=== PATIENT | female | born 1960 | race Hispanic/Latino ===

== ENCOUNTER 2023-05-08 18:10 | Inpatient (IN) | payer SELFPAY ==
[2023-05-08 19:12] LABS: SARS-CoV-2 Antigen Rapid Res Negative (Negative)
[2023-05-08 19:13] LABS: Absolute Lymphocytes (CBC) 0.4 K/uL (0.7-4.9); Hematocrit 41.3 % (36.0-45.0); Lymphocytes % 2.1 % (15.3-44.8); MPV 8.8 fL (7.6-11.3); Platelets 262 thou/uL (152-406); RBC Red Blood Cell Count 4.64 M/uL (3.86-4.86)
[2023-05-08 19:14] LABS: Protime INR 1.06
[2023-05-08] MEDS ORDERED: NA CHLORIDE 0.9% 2,000 ML ONE (19:22)
[2023-05-08] MEDS ORDERED: NA CHLORIDE 0.9% 50 ML ONE (19:22)
[2023-05-08] MEDS ORDERED: CEFTRIAXONE 1000 MG/VIAL ONE (19:22)
--- NOTE | 2023-05-08 20:15 | RAD REPORT ---
EXAM DESCRIPTION: RAD - Chest Single View - 05/08/2023 7:49 pm CLINICAL HISTORY: COUGH Chest pain. COMPARISON: No comparisons FINDINGS: Portable technique limits examination quality. The lungs are grossly clear. The heart is normal in size. No displaced fractures. IMPRESSION: No acute intrathoracic process suspected.
[2023-05-08 20:20] LABS: Albumin 3.7 g/dL (3.4-5.0); Bilirubin Direct 0.2 mg/dL (0-0.2); Bilirubin Indirect, Calculated 0.2 mg/dL (0.2-0.8); Bilirubin Total 0.4 mg/dL (0.2-1.0); Potassium 3.6 mEq/L (3.5-5.1); Protein, Total 6.9 g/dL (6.4-8.2)
--- NOTE | 2023-05-08 20:48 | EDPHYS ---
Physician Documentation [facility] Name: Margo Costello Age: 62 yrs Sex: Female : 1960 Arrival Date: 05/08/2023 Time: 18:10 Bed 19 Private MD: ED Physician Kirby Edwards HPI: 05/08 20:26 This 62 yrs old Female presents to ER via Ambulatory with complaints of Low bismark bp, high heart rate. 20:26 The patient complains of pain to the top of head, forehead, left frontal area and left bismark side of the back of head. The patient describes the headache as aching. Onset: The symptoms/episode began/occurred today. The patient presents with a history of heart racing. Context: The symptoms occur with light activity. Onset: The symptoms/episode began/occurred at 13:00. Duration: The patient or guardian reports multiple episodes, that are intermittent. Modifying factors: The symptoms are aggravated by nothing. The symptoms are alleviated by nothing. The patient presents to the emergency department with nausea, that is moderate, vomiting, 2 times since the onset of symptoms. The symptoms are aggravated by nothing. The symptoms are alleviated by nothing. GOT WEAK , CHILLED, VOMITING TWICE , FAST HR, LOW BP. Historical: - Allergies: 18:25 No Known Allergies; nj1 - PMHx: 18:25 Hypertensive disorder; Diabetes mellitus; nj1 - PSHx: 18:25 Cholecystectomy; nj1 - Immunization history:: Client reports receiving the 2nd dose of the Covid vaccine. - Social history:: Smoking status: Patient denies any tobacco usage or history of. ROS: 20:29 Constitutional: Negative for fever, chills, and weight loss, Eyes: Negative for injury, bismark pain, redness, and discharge, ENT: Negative for injury, pain, and discharge, Neck: Negative for injury, pain, and swelling, Respiratory: Negative for shortness of breath, cough, wheezing, and pleuritic chest pain, Back: Negative for injury and pain, : Negative for injury, bleeding, discharge, and swelling, MS/Extremity: Negative for injury and deformity, Skin: Negative for injury, rash, and discoloration, Neuro: Negative for headache, weakness, numbness, tingling, and seizure, Psych: Negative for depression, anxiety, suicide ideation, homicidal ideation, and hallucinations, Allergy/Immunology: Negative for hives, rash, and allergies, Endocrine: Negative for neck swelling, polydipsia, polyuria, polyphagia, and marked weight changes, Hematologic/Lymphatic: Negative for swollen nodes, abnormal bleeding, and unusual bruising. 20:29 Cardiovascular: Positive for palpitations. 20:29 Abdomen/GI: Positive for nausea and vomiting. Exam: 20:29 Constitutional: This is a well developed, well nourished patient who is awake, alert, bismark and in no acute distress. Head/Face: Normocephalic, atraumatic. Eyes: Pupils equal round and reactive to light, extra-ocular motions intact. Lids and lashes normal. Conjunctiva and sclera are non-icteric and not injected. Cornea within normal limits. Periorbital areas with no swelling, redness, or edema. ENT: Nares patent. No nasal discharge, no septal abnormalities noted. Tympanic membranes are normal and external auditory canals are clear. Oropharynx with no redness, swelling, or masses, exudates, or evidence of obstruction, uvula midline. Mucous membranes moist. Neck: Trachea midline, no thyromegaly or masses palpated, and no cervical lymphadenopathy. Supple, full range of motion without nuchal rigidity, or vertebral point tenderness. No Meningismus. Chest/axilla: Normal chest wall appearance and motion. Nontender with no deformity. No lesions are appreciated. Respiratory: Lungs have equal breath sounds bilaterally, clear to auscultation and percussion. No rales, rhonchi or wheezes noted. No increased work of breathing, no retractions or nasal flaring. Abdomen/GI: Soft, non-tender, with normal bowel sounds. No distension or tympany. No guarding or rebound. No evidence of tenderness throughout. Back: No spinal tenderness. No costovertebral tenderness. Full range of motion. Female : Normal external genitalia. Skin: Warm, dry with normal turgor. Normal color with no rashes, no lesions, and no evidence of cellulitis. MS/ Extremity: Pulses equal, no cyanosis. Neurovascular intact. Full, normal range of motion. Neuro: Awake and alert, GCS 15, oriented to person, place, time, and situation. Cranial nerves II-XII grossly intact. Motor strength 5/5 in all extremities. Sensory grossly intact. Cerebellar exam normal. Normal gait. Psych: Awake, alert, with orientation to person, place and time. Behavior, mood, and affect are within normal limits. 20:29 Neck: External neck: is normal, no acute changes, ROM/movement: is normal, no acute changes, limited range of motion, is not appreciated, Meningeal signs: are not present, Kernig's sign is negative, Brudzinski's sign is negative, nuchal rigidity, is not appreciated, Lymph nodes: no appreciated lymphadenopathy. 20:29 Cardiovascular: Rate: tachycardic, actual rate is 139 bpm, Rhythm: regular, Pulses: Pulses are 4+ in bilateral radial, brachial, femoral, popliteal, posterior tibial and and dorsalis pedis arteries.. Heart sounds: normal, normal S1and S2, no S3 or S4, no murmur, no rub, no gallop, Edema: is not appreciated, JVD: is not appreciated. 20:29 ECG was reviewed by the Attending Physician. 20:29 Musculoskeletal/extremity: DVT Exam: No signs of deep vein thrombosis. no pain, no swelling, no tenderness, negative Homans' sign noted on exam, no appreciated bluish discoloration, no erythema, no increased warmth. Vital Signs: 18:19 BP 103 / 65; Pulse 139; Resp 18; Temp 98.2; Pulse Ox 98% ; Weight 65.32 kg; Height 5 nj1 ft. 4 in. ; 18:45 BP 104 / 60; Pulse 126; Resp 20; Pulse Ox 97% on R/A; cm10 19:35 BP 102 / 59; Pulse 118; Resp 18; Pulse Ox 100% on R/A; cm10 20:30 BP 96 / 50; Pulse 115; Resp 22; Pulse Ox 100% on R/A; cm10 21:41 Pulse 122; Temp 98.5(O); cm10 22:00 BP 86 / 69; Pulse 125; Resp 19; Pulse Ox 98% on R/A; cm10 22:10 BP 91 / 44; Pulse 127; Resp 24; Pulse Ox 98% on R/A; cm10 22:30 BP 96 / 47; Pulse 129; Resp 21; Pulse Ox 97% on R/A; cm10 23:00 BP 85 / 53; Pulse 121; Resp 19; Pulse Ox 97% on R/A; cm10 23:07 BP 90 / 48; Pulse 118; Resp 21; Pulse Ox 96% on R/A; cm10 23:30 BP 91 / 49; Pulse 108; Resp 16; Pulse Ox 95% on R/A; cm10 05/09 00:10 BP 105 / 62; Pulse 114; Resp 18; Pulse Ox 96% on R/A; cm10 05/08 18:19 Body Mass Index 24.72 (65.32 kg, 162.56 cm) nj1 Chelita Coma Score: 05/08 20:31 Eye Response: spontaneous(4). Motor Response: obeys commands(6). Verbal Response: bismark oriented(5). Total: 15. MDM: 18:34 Patient medically screened. bismark 20:31 Differential diagnosis: cluster headache, arrythmia, dehydration, stress disorder, bismark Nonspecific abd pain, gastritis, pancreatitis, diverticulitis, viral gastroenteritis, gastroenteritis, hyponatremia, intracerebral hemorrhage, migraine, neoplasm, sinusitis, subarachnoid bleed, subdural hematoma, temporal arteritis, tension headache, trigeminal neuralgia, vasomotor headache. Differential Diagnosis altered mental status, sepsis, flu. Data reviewed: vital signs, nurses notes, lab test result(s), EKG, radiologic studies, CT scan, plain films. Consideration of Admission/Observation Patient was admitted/placed on observation. Escalation of care including admission/observation considered. I considered the following discharge prescriptions or medication management in the emergency department Medications were administered in the Emergency Department. See MAR. Test considered but Not performed: CT: NO CT ABD/PELVIS. Historians other than the Patient: Family Member: DAUGHTER , INFORMED. Care significantly affected by the following chronic conditions: Diabetes, Hypertension, Obesity. Counseling: I had a detailed discussion with the patient and/or guardian regarding the historical points, exam findings, and any diagnostic results supporting the discharge/admit diagnosis, lab results, radiology results, the need for further work-up and treatment in the hospital. 05/08 18:36 Order name: Basic Metabolic Panel; Complete Time: 20:41 [facility] 05/08 18:36 Order name: CBC with Diff; Complete Time: 20:18 [facility] 05/08 18:36 Order name: LFT's; Complete Time: 20:41 [facility] 05/08 18:36 Order name: Magnesium; Complete Time: 20:41 [facility] 05/08 18:36 Order name: NT PRO-BNP; Complete Time: 20:41 [facility] 05/08 18:36 Order name: PT-INR; Complete Time: 20:18 [facility] 05/08 18:36 Order name: Troponin HS; Complete Time: 20:41 [facility] 05/08 18:36 Order name: Lipase; Complete Time: 20:41 [facility] 05/08 18:36 Order name: Urinalysis w/ reflexes; Complete Time: 23:41 [facility] 05/08 18:36 Order name: Blood Culture Adult (2) [facility] 05/08 18:36 Order name: Lactate w/ 2H reflex if indic.; Complete Time: 20:18 [facility] 05/08 18:36 Order name: Flu; Complete Time: 20:18 [facility] 05/08 18:36 Order name: SARS RAPID; Complete Time: 20:18 [facility] 05/08 21:46 Order name: Glucose, Ancillary Testing; Complete Time: 23:41 EDMS 05/08 22:04 Order name: Urine Culture EDMS 05/08 22:42 Order name: Comprehensive Metabolic Panel EDMS 05/08 22:42 Order name: Comprehensive Metabolic Panel EDMS 05/08 22:42 Order name: Lactate w/ 2H reflex if indic. EDMS 05/08 22:42 Order name: CBC with Automated Diff EDMS 05/08 22:42 Order name: CBC with Automated Diff EDMS 05/08 22:42 Order name: CBC with Automated Diff EDMS 05/08 22:42 Order name: Comprehensive Metabolic Panel EDMS 05/08 22:42 Order name: Comprehensive Metabolic Panel EDMS 05/08 22:42 Order name: Magnesium EDMS 05/08 22:42 Order name: Urinalysis w/ reflexes EDMS 05/08 22:42 Order name: CBC with Automated Diff EDMS 05/08 22:43 Order name: Magnesium EDMS 05/08 22:43 Order name: Magnesium EDMS 05/08 22:43 Order name: Magnesium EDMS 05/08 23:38 Order name: Lactate Sepsis 2 HR Follow-up; Complete Time: 23:41 EDMS 05/09 00:13 Order name: Glucose, Ancillary Testing EDMS 05/08 18:36 Order name: XRAY Chest (1 view); Complete Time: 20:18 [facility] 05/08 20:25 Order name: CT Head Brain wo Cont; Complete Time: 21:40 [facility] 05/08 18:36 Order name: EKG; Complete Time: 18:37 [facility] 05/08 22:38 Order name: CONS Physician Consult [facility] 05/08 22:42 Order name: 60g Consistent Carbohydrate (ADA 1800/2000) [facility] 05/08 18:36 Order name: Cardiac monitoring; Complete Time: 18:56 [facility] 05/08 18:36 Order name: EKG - Nurse/Tech; Complete Time: 18:37 [facility] 05/08 18:36 Order name: IV Saline Lock; Complete Time: 19:22 [facility] 05/08 18:36 Order name: Labs collected and sent; Complete Time: 19:22 [facility] 05/08 18:36 Order name: O2 Per Protocol; Complete Time: 18:37 [facility] 05/08 18:36 Order name: O2 Sat Monitoring; Complete Time: 18:37 [facility] 05/08 20:45 Order name: Misc. Order: GET UA; Complete Time: 21:15 bismark EC:29 Rate is 137 beats/min. Rhythm is regular. QRS Virgie is Normal. TN interval is normal. bismark QRS interval is normal. QT interval is normal. No Q waves. T waves are Normal. No ST changes noted. Clinical impression: Sinus tachycardia. Interpreted by me. Reviewed by me. Administered Medications: 19:19 Drug: NS 0.9% IV 1000 ml Route: IV; Rate: 1 bolus; Site: right antecubital; cm10 21:51 Follow up: Response: No adverse reaction; IV Status: Completed infusion; IV Intake: cm10 1000ml 19:20 Drug: NS 0.9% IV 1000 ml Route: IV; Rate: 1 bolus; Site: right antecubital; cm10 21:05 Follow up: Response: No adverse reaction; IV Status: Completed infusion; IV Intake: cm10 1000ml 19:44 Drug: Rocephin IV 1 grams Route: IV; Rate: per protocol; Site: right antecubital; cm10 20:10 Follow up: Response: No adverse reaction; IV Status: Completed infusion cm10 21:05 Not Given (Physician Discretion): NS 0.9% IV 1000 ml IV at 1 bolus Per protocol; 1000 cm10 mL bolus 21:50 Drug: NS 0.9% IV 1000 ml Route: IV; Rate: 125 ml/hr; Site: right antecubital; cm10 21:51 Drug: Acetaminophen PO 1000 mg Route: PO; cm10 23:59 Follow up: Response: No adverse reaction cm10 21:51 Drug: Magnesium Sulfate IVPB 2 grams Route: IVPB; Infused Over: 2 hrs; Site: right cm10 antecubital; 23:59 Follow up: Response: No adverse reaction; IV Status: Completed infusion cm10 22:37 Drug: NS 0.9% IV 1000 ml Route: IV; Rate: 1 bolus; Site: right antecubital; cm10 23:45 Follow up: Response: No adverse reaction; IV Status: Completed infusion; IV Intake: cm10 1000ml 22:39 Not Given (Hold per admitting provider.): Insulin Regular Human IVP 8 units IVP once cm10 22:39 Drug: Insulin Glargine Sub-Q 30 units Route: Sub-Q; Site: right upper arm; cm10 23:59 Follow up: Response: No adverse reaction cm10 Disposition Summary: 05/08/23 20:47 Hospitalization Ordered Hospitalization Status: Observation bismark Provider: Britni Smith cha Condition: Fair bismark Problem: new bismark Symptoms: have improved bismark Bed/Room Type: Standard bismark Location: Intensive Care Unit(05/08/23 23:53) eb1 Room Assignment: 6-(05/08/23 23:53) eb1 Diagnosis - Elevated white blood cell count bismark - Vomiting bismark - Dehydration bismark - Hypomagnesemia bismark - Type 2 diabetes mellitus with hyperglycemia bismark - Hypotension, unspecified - RESOLVED/ IMPROVED(05/08/23 20:48) bismark Forms: - Medication Reconciliation Form bismark - SBAR form bismark - Leadership Thank You Letter bismark Signatures: Dispatcher [employer] Kirby Santos MD MD cha Nieto, Roman, MD MD rn Basinger, Emily RN RN eb1 Nubia Mary RN RN nj1 Jessica Woodward RN RN cm10 Corrections: (The following items were deleted from the chart) 20:48 20:47 Hypotension, unspecified - RESOLVED bismark bismark 23:44 20:47 bismark eb1 23:49 23:44 413 eb1 eb1 23:53 20:47 Telemetry/MedSurg (Inpatient) bismark eb1 23:53 23:49 eb1 eb1
--- NOTE | 2023-05-08 20:48 | ER ---
Nurse's Notes [facility] Name: Margo Costello Age: 62 yrs Sex: Female : 1960 Arrival Date: 05/08/2023 Time: 18:10 Bed 19 Private MD: Diagnosis: Elevated white blood cell count;Vomiting;Dehydration;Hypomagnesemia;Type 2 diabetes mellitus with hyperglycemia;Hypotension, unspecified-RESOLVED/ IMPROVED Presentation: 05/08 18:19 Chief complaint: Patient states: Was doing ok this morning, was wasing the dishes and nj1 started having chills and vomited about 2 times. Has a headache right now. Went to urgent care and was told to go to ED because of high heart rate and low blood pressure. Coronavirus screen: Vaccine status: Patient reports receiving the 2nd dose of the covid vaccine. Ebola Screen: Patient denies travel to an Ebola-affected area in the 21 days before illness onset. 18:19 Method Of Arrival: Ambulatory [facility] 18:19 Acuity: NORMA 2 [facility] 18:19 Initial Sepsis Screen: Does the patient meet any 2 criteria? HR > 90 bpm. No. Patient's mt1 initial sepsis screen is negative. Does the patient have a suspected source of infection? No. Patient's initial sepsis screen is negative. Risk Assessment: Do you want to hurt yourself or someone else? Patient reports no desire to harm self or others. Onset of symptoms was May 08, 2023 at 13:00. Historical: - Allergies: 18:25 No Known Allergies; nj1 - PMHx: 18:25 Hypertensive disorder; Diabetes mellitus; nj1 - PSHx: 18:25 Cholecystectomy; nj1 - Immunization history:: Client reports receiving the 2nd dose of the Covid vaccine. - Social history:: Smoking status: Patient denies any tobacco usage or history of. Screenin:57 [facility] ED Fall Risk Assessment (Adult) Score/Fall Risk Level 0 - 2 = Low Risk. Abuse me1 screen: Denies threats or abuse. Nutritional screening: No deficits noted. Tuberculosis screening: No symptoms or risk factors identified. Assessment: 18:57 General: Appears uncomfortable, well groomed, well developed, well nourished, Behavior me1 is calm, cooperative, appropriate for age, Reports chills for feeling ill for fatigue for this morning patient had chills and vomited x2. Sent to ER by urgent care for fast HR and low BP. Pain: Denies pain. Neuro: Level of Consciousness is awake, alert, obeys commands, Oriented to person, place, time, situation, Appropriate for age. Cardiovascular: Capillary refill < 3 seconds Patient's skin is warm and dry. Respiratory: Airway is patent Respiratory effort is even, unlabored, Respiratory pattern is regular, symmetrical. GI: Reports vomiting. 19:22 Reassessment: Patient and/or family updated on plan of care and expected duration. Pain cm10 level reassessed. Patient is alert, oriented x 3, equal unlabored respirations, skin warm/dry/pink. Assumed care of patient at this time. Pt resting comfortably. Pt denies any needs. No pain or shortness of breath. Pt on continuous cardiac monitoring. Patient denies pain at this time. 21:30 Reassessment: Patient appears in no apparent distress at this time. No changes from cm10 previously documented assessment. Patient and/or family updated on plan of care and expected duration. Pain level reassessed. Patient is alert, oriented x 3, equal unlabored respirations, skin warm/dry/pink. Patient states symptoms have improved. 22:30 Reassessment: Patient appears in no apparent distress at this time. No changes from cm10 previously documented assessment. Patient and/or family updated on plan of care and expected duration. Pain level reassessed. Patient is alert, oriented x 3, equal unlabored respirations, skin warm/dry/pink. 23:27 Reassessment: Patient appears in no apparent distress at this time. No changes from cm10 previously documented assessment. Patient and/or family updated on plan of care and expected duration. Pain level reassessed. Patient is alert, oriented x 3, equal unlabored respirations, skin warm/dry/pink. Pt continues to remain hypotensive. Provider aware. 05/09 00:00 Reassessment: Luca charge nurse at bedside placing midline. cm10 00:11 Reassessment: Report called to NOHEMY Lee in ICU. Pt aware of admission and verbalized cm10 understanding. Pt stable for admission to ICU at this time. Vital Signs: 05/08 18:19 BP 103 / 65; Pulse 139; Resp 18; Temp 98.2; Pulse Ox 98% ; Weight 65.32 kg; Height 5 nj1 ft. 4 in. ; 18:45 BP 104 / 60; Pulse 126; Resp 20; Pulse Ox 97% on R/A; cm10 19:35 BP 102 / 59; Pulse 118; Resp 18; Pulse Ox 100% on R/A; cm10 20:30 BP 96 / 50; Pulse 115; Resp 22; Pulse Ox 100% on R/A; cm10 21:41 Pulse 122; Temp 98.5(O); cm10 22:00 BP 86 / 69; Pulse 125; Resp 19; Pulse Ox 98% on R/A; cm10 22:10 BP 91 / 44; Pulse 127; Resp 24; Pulse Ox 98% on R/A; cm10 22:30 BP 96 / 47; Pulse 129; Resp 21; Pulse Ox 97% on R/A; cm10 23:00 BP 85 / 53; Pulse 121; Resp 19; Pulse Ox 97% on R/A; cm10 23:07 BP 90 / 48; Pulse 118; Resp 21; Pulse Ox 96% on R/A; cm10 23:30 BP 91 / 49; Pulse 108; Resp 16; Pulse Ox 95% on R/A; cm10 05/09 00:10 BP 105 / 62; Pulse 114; Resp 18; Pulse Ox 96% on R/A; cm10 05/08 18:19 Body Mass Index 24.72 (65.32 kg, 162.56 cm) [facility] Harvey Coma Score: 05/08 20:31 Eye Response: spontaneous(4). Motor Response: obeys commands(6). Verbal Response: bismark oriented(5). Total: 15. ED Course: 18:13 Patient arrived in ED. im 18:21 Triage completed. nj1 18:25 Arm band placed on left wrist. nj1 18:34 Kirby Edwards MD is Attending Physician. bismark 18:56 SARS RAPID Sent. me1 18:56 Flu Sent. me1 18:57 Patient has correct armband on for positive identification. Placed in gown. Bed in low me1 position. Call light in reach. Side rails up X2. Provided Education on: POC. Verbalized understanding. . 18:57 No provider procedures requiring assistance completed. me1 19:20 Client placed on continuous cardiac and pulse oximetry monitoring. NIBP monitoring cm10 applied. Warm blanket given. 19:20 Inserted saline lock: 22 gauge in right antecubital area, using aseptic technique. cm10 ,using aseptic technique. Placed by NOHEMY Ritter. 19:21 Inserted saline lock: 22 gauge in left forearm, using aseptic technique. Placed by berta Murphy. 19:22 Jessica Woodward, NOHEMY is Primary Nurse. cm10 19:51 XRAY Chest (1 view) In Process Unspecified. EDMS 20:46 Britni Smith MD is Hospitalizing Provider. [facility] 21:17 CT Head Brain wo Cont In Process Unspecified. EDMS 08 00:10 Patient admitted, IV remains in place. cm10 00:16 Accessed 18g 10cm midline placed to right upper arm using Clean \T\ dry. Dressing intact. as6 Good blood return. Flushes easily. Administered Medications: 05/08 19:19 Drug: NS 0.9% IV 1000 ml Route: IV; Rate: 1 bolus; Site: right antecubital; cm10 21:51 Follow up: Response: No adverse reaction; IV Status: Completed infusion; IV Intake: cm10 1000ml 19:20 Drug: NS 0.9% IV 1000 ml Route: IV; Rate: 1 bolus; Site: right antecubital; cm10 21:05 Follow up: Response: No adverse reaction; IV Status: Completed infusion; IV Intake: cm10 1000ml 19:44 Drug: Rocephin IV 1 grams Route: IV; Rate: per protocol; Site: right antecubital; cm10 20:10 Follow up: Response: No adverse reaction; IV Status: Completed infusion cm10 21:05 Not Given (Physician Discretion): NS 0.9% IV 1000 ml IV at 1 bolus Per protocol; 1000 cm10 mL bolus 21:50 Drug: NS 0.9% IV 1000 ml Route: IV; Rate: 125 ml/hr; Site: right antecubital; cm10 21:51 Drug: Acetaminophen PO 1000 mg Route: PO; cm10 23:59 Follow up: Response: No adverse reaction cm10 21:51 Drug: Magnesium Sulfate IVPB 2 grams Route: IVPB; Infused Over: 2 hrs; Site: right cm10 antecubital; 23:59 Follow up: Response: No adverse reaction; IV Status: Completed infusion cm10 22:37 Drug: NS 0.9% IV 1000 ml Route: IV; Rate: 1 bolus; Site: right antecubital; cm10 23:45 Follow up: Response: No adverse reaction; IV Status: Completed infusion; IV Intake: cm10 1000ml 22:39 Not Given (Hold per admitting provider.): Insulin Regular Human IVP 8 units IVP once cm10 22:39 Drug: Insulin Glargine Sub-Q 30 units Route: Sub-Q; Site: right upper arm; cm10 23:59 Follow up: Response: No adverse reaction cm10 Medication: 18:57 VIS not applicable for this client. me1 Intake: 21:05 IV: 1000ml; Total: 1000ml. cm10 21:51 IV: 1000ml; Total: 2000ml. cm10 23:45 IV: 1000ml; Total: 3000ml. cm10 Outcome: 20:47 Decision to Hospitalize by Provider. bismark 05/09 00:09 Admitted to ICU accompanied by nurse, via stretcher, on monitor, Report called to berta Lee RN Condition: good Instructed on the need for admit. 00:15 Patient left the ED. ha1 Signatures: Dispatcher [employer] EDKirby Balbuena MD MD cha Slawson, Ashby, RN RN as6 Joan Begum, RN RN ha1 Nubia Mary, RN RN nj1 Julita Felix Clarissa RN NOHEMY Riya Carias, RN RN wv1 Corrections: (The following items were deleted from the chart) 05/08 18:25 18:19 Pulse 139bpm; Resp 18bpm; Pulse Ox 98%; Temp 98.2F; 65.32 kg; Height 5 ft. 4 in.; nj1 BMI: 24.7; nj1 05/09 00:44 00:44 Patient left the ED. ha1 ha1
--- NOTE | 2023-05-08 21:26 | RAD REPORT ---
EXAM DESCRIPTION: CT - Head Brain Wo Cont - 05/08/2023 9:15 pm CLINICAL HISTORY: HEADACHE Headache, drowsiness COMPARISON: No comparisons TECHNIQUE: All CT scans are performed using dose optimization technique as appropriate and may inclu de automated exposure control or mA/KV adjustment according to patient size. FINDINGS: No intracranial hemorrhage, hydrocephalus or extra-axial fluid collection.No areas of brai n edema or evidence of midline shift. The paranasal sinuses and mastoids are clear. The calvarium is intact. IMPRESSION: No acute intracranial abnormality.
[2023-05-08] MEDS ORDERED: ACETAMINOPHEN 500 MG TAB ONE (21:55)
[2023-05-08] MEDS ORDERED: NA CHLORIDE 0.9% 1,000 ML ONE ×2 (21:55→22:45)
[2023-05-08] MEDS ORDERED: Magnesium Sulfate 2gm IVPB 2 G/50 ML BAG IV ONE (21:55)
[2023-05-08 22:00] LABS: Specific Gravity 1.011 (1.005-1.030); Urine Bacteria >50 /HPF (<20); Urine Bilirubin NEGATIVE (Negative); Urine Blood Negative (Negative); Urine Clarity Extremely Turbid (Clear); Urine Color Light-Yellow (Yellow); Urine Glucose 3+ (Negative); Urine Mucus Slight /HPF (None Seen); Urine Protein TRACE (Negative); Urine RBC <5 /HPF (None Seen); Urine Urobilinogen Normal (Normal); Urine WBC Clump Rare /HPF (None Seen)
--- NOTE | 2023-05-08 22:30 | P.HP ---
Certification for Inpatient Patient admitted to: Inpatient With expected LOS: <2 Midnights Patient will require the following post-hospital care: None Practitioner: I am a practitioner with admitting privileges, knowledge of patient current condition, hospital course, and medical plan of care. Services: Services provided to patient in accordance with Admission requirements found in Title 42 Section 412.3 of the Code of Federal Regulations Patient History Date of Service: 05/09/23 History of Present Illness: 62-year-old Turkmen-speaking female with a past medical history of hypertension, diabetes presents to the emergency room with hypotension. Son is primary historian reports patient had fever and chills today, reports low blood pressure and high heart rate started today. Prior to her arrival, she denies nausea vomiting abdominal pain, chest pain, shortness of breath, dizziness edema. Plan to admit for septic shock due to unknown source of infection. B lood pressure in the emergency room was 85/53, heart rate 121 respirations 19 pulse 97% on evaluation after sepsis bolus 30 mg/kg patient was still hypotensive 89/50, heart rate 120s, plan to admit to ICU, PICC line inserted for norepinephrine for hypotension go to try today blood pressure map of 65. Ceftriaxone was given in the emergency room due to increased lactic, hypotension antibiotics were increased to vancomycin and Zosyn. Initial lactic was 4.9, repeat lactic was 6.0, third lactic was 5.5, blood sugars 231, CBC WBCs is 18.60 with left shift 97.5, mild hyponatremia sodium 134 potassium normal at 3.6 transaminitis AST 72 ALT 66, BNP 182, UA leukoesterase 250, 3+ glucose urea, CT of the head no acute abnormality, chest x-ray no acute intrathoracic process suspected Allergies No Known Allergies Allergy (Verified 05/09/23 01:31) Home Medications: Glipizide [Glipizide ER] 1 tab PO BID 05/09/23 Metformin HCl [Glucophage*] 850 mg PO BID 05/09/23 Telmisartan/Hydrochlorothiazid [Micardis Hct 80-12.5 mg Tablet] 1 tab PO DAILY 05/09/23 - Family History Mother -: Hypertension, Kidney disease Father -: Diabetes Review of Systems 10-point ROS is otherwise unremarkable Physical Examination - Physical Exam General: Alert, In no apparent distress, Oriented x3 HEENT: Atraumatic, Normocephalic Neck: Supple, 2+ carotid pulse no bruit, JVD not distended Respiratory: Clear to auscultation bilaterally, Normal air movement Cardiovascular: No edema, Normal pulses, Other (Sinus tachycardia, septic shock with hypotension,) Capillary refill: <2 Seconds Gastrointestinal: Normal bowel sounds, Soft and benign, Non-distended Musculoskeletal: No clubbing, No swelling Integumentary: Other (Neck erythema flushing) Neurological: Normal speech, Normal strength at 5/5 x4 extr, Sensation intact, Cranial nerves 3-12 intact - Studies Laboratory Data (last 24 hrs) 05/08/23 05/08/23 05/08/23 18:58 18:58 18:58 WBC 18.60 H Hgb 13.8 Hct 41.3 Plt Count 262 PT 11.7 INR 1.06 Sodium 134 L Potassium 3.6 BUN 17 Creatinine 1.15 H Glucose 317 H Magnesium 1.0 L* Total Bilirubin 0.4 AST 72 H ALT 66 H Alkaline Phosphatase 99 Lipase 40 Microbiology Data (last 24 hrs): 05/08/23 18:52 Nasopharnyx Influenza Type A Antigen Screen - Final 05/08/23 18:52 Nasopharnyx Influenza Type B Antigen Screen - Final Assessment and Plan - Plan Assessment plan Septic shock with hypotension Acute cystitis Diabetes type 2 [id number]-dbulpadxf with hyperglycemia uncontrolled Acute kidney injury Transaminitis Mild hyponatremia History of hypertension DVT prophylaxis ssessment plan Septic shock with hypotension Admit to ICU, norepinephrine keep MAP greater than 65 plan to admit to ICU, PICC line IV vancomycin and Zosyn Trend lactic, WBCs trend cultures Infectious disease consult 85/53, heart rate 121 respirations 19 pulse 97% Sepsis bolus 3 L of normal saline given in the ER Initial lactic was 4.9, repeat lactic was 6.0, third lactic was 5.5, CBC WBCs is 18.60 with left shift 97.5, CT of the head no acute abnormality, Acute cystitis IV vancomycin and Zosyn Trend urine cultures UA leukoesterase 250, 3+ glucose urea, chest x-ray no acute intrathoracic process suspected Diabetes type 2 [id number]-nbxexgiml with hyperglycemia uncontrolled Hyperglycemia, glucosuria, blood sugar 230, A1c in the a.m. Accu-Cheks, sliding scale insulin, Will need to be discharged home on long-acting insulin Acute kidney injury IV fluids per sepsis bolus Trend kidney function Transaminitis L hepatitis panel transaminitis AST 72 ALT 66, Mild hyponatremia IV fluids per sepsis bolus sodium 134 History of hypertension Resume appropriate home meds Diabetic diet Full code DVT prophylaxis Lovenox Discharge Plan: Home Plan to discharge in: 48 Hours - Advance Directives Does patient have a Living Will: No Does patient have a Durable POA for Healthcare: No - Code Status/Comfort Care Code Status: Full Code Physician Review: Patient Assessed, Agree with Above Assessment and Plan Critical Care: No Time Spent Managing Pts Care (In Minutes): 50
[2023-05-08] MEDS ORDERED: ONDANSETRON 4 MG/2 ML VIAL IV PRN (22:40)
[2023-05-08] MEDS ORDERED: ACETAMINOPHEN 500 MG TAB PO PRN (22:40)
[2023-05-08] MEDS ORDERED: INSULIN GLARGINE 100 UNIT/ML SQ ONE (22:44)
[2023-05-08] MEDS: NA CHLORIDE 0.9% 1,000 ML IV SCH (23:00)
[2023-05-08] MEDS ORDERED: PIPERACIL/TAZO 3.375 GM VIAL IV ONE (23:46)
[2023-05-08] MEDS ORDERED: NA CHLORIDE 0.9% 100 ML ONE (23:46)
[2023-05-08] MEDS: PIPER TAZO 3.375 GM in NA CHLORIDE 0.9% 100 ML IV SCH (23:56)
[2023-05-09] MEDS ORDERED: NOREPINEPHRINE 4 MG in D5W 250 ML IV SCH (01:00)
[2023-05-09] MEDS ORDERED: PIPER TAZO 3.375 GM in NA CHLORIDE 0.9% 100 ML IV SCH (01:00)
[2023-05-09 01:08] VITALS: BMI 25.6
[2023-05-09] MEDS ORDERED: VANCOMYCIN 1.75 GM in NA CHLORIDE 0.9% 500 ML IVPB ONE (03:00)
[2023-05-09] MEDS ORDERED: VANCOMYCIN 1 GM in NA CHLORIDE 0.9% 250 ML IVPB SCH ×4 (03:00)
[2023-05-09] MEDS ORDERED: VANCOMYCIN 1 GM/VIAL ONE (03:24)
[2023-05-09] MEDS ORDERED: NA CHLORIDE 0.9% 500 ML ONE (03:25)
[2023-05-09 05:13] LABS: Absolute Lymphocytes (CBC) 0.9 K/uL (0.7-4.9); Hematocrit 32.7 % (36.0-45.0); Lymphocytes % 3.8 % (15.3-44.8); MCV 88.4 fL (80-100); MPV 9.4 fL (7.6-11.3); Platelets 206 thou/uL (152-406)
[2023-05-09 05:40] LABS: Magnesium 1.5 mg/dL (1.6-2.4); Phosphorus 3.3 mg/dL (2.5-4.9); Potassium 3.4 mEq/L (3.5-5.1)
[2023-05-09] MEDS ORDERED: POTASSIUM 25 MEQ EFFERV TAB PO ONE (05:45)
[2023-05-09] MEDS ORDERED: Magnesium Sulfate 2gm IVPB 2 G/50 ML BAG IV ONE (05:45)
[2023-05-09] MEDS: INSULIN -REGULAR HUMAN 50 UNIT/0.5 ML ML SQ SCH ×4 (07:30→20:04)
[2023-05-09 08:45] LABS: Platelet Estimate ADEQ
[2023-05-09 08:46] LABS: Blood Morphology Comment NOT SEEN (NOT SEEN); Dohle Bodies PRESENT
[2023-05-09] MEDS ORDERED: NOREPINEPHRINE BITARTRATE/D5W 4 MG/250 ML BAG IV SCH (09:00)
[2023-05-09] MEDS ORDERED: CEFTRIAXONE 2,000 MG in NA CHLORIDE 0.9% 100 ML IV SCH (09:00)
[2023-05-09] MEDS: ENOXAPARIN 40 MG/0.4 ML SQ SCH (09:23)
[2023-05-09] MEDS: PIPER TAZO 3.375 GM in NA CHLORIDE 0.9% 100 ML IV SCH ×2 (09:23→17:03)
[2023-05-09] MEDS: NA CHLORIDE 0.9% 1,000 ML IV SCH ×2 (09:24→18:55)
[2023-05-09] MEDS ORDERED: NA CHLORIDE 0.9% 500 ML IV ONE (09:49)
[2023-05-09 10:06] LABS: Hepatitis B Core IgM Nonreactive (Nonreactive); Hepatitis B surface AG Interp. Nonreactive (Nonreactive); Hepatitis C Virus Ab Nonreactive (Nonreactive)
--- NOTE | 2023-05-09 12:38 | EKG ---
Test Date: 2023-05-08 Test Time: 18:32:16 [employer]: SARAH MEASUREMENT RESULTS: Intervals: Rate: 137 OK: 124 QRSD: 74 QT: 300 QTc: 453 [place]: P: 52 OK: 124 QRS: 15 T: 57 INTERPRETIVE STATEMENTS: Sinus tachycardia Otherwise normal ECG No previous ECG available for comparison Electronically Signed On 05-09-23 12:36:50 CDT by Marco Wood
--- NOTE | 2023-05-09 12:54 | ECHO ---
HEIGHT: 5 ft 4 in WEIGHT: 149 lb 4 oz DATE OF STUDY: 05/09/[address]: Britni Smith MD 2-DIMENSIONAL: YES M.MODE: YES DOPPLER: YES COLOR FLOW: YES TDS: PORTABLE: YES DEFINITY: BUBBLE STUDY: DIAGNOSIS: HYPOTENSION CARDIAC HISTORY: CATHERIZATION: NO SURGERY: NO PROSTHETIC VALVE: NO PACEMAKER: NO MEASUREMENTS (cm) DIASTOLIC (NORMALS) SYSTOLIC (NORMALS) IVSd 0.9 (0.6-1.2) LA Diam 2.5 (1.9-4.0) LVEF 61% LVIDd 3.6 (3.5-5.7) LVIDs 2.5 (2.0-3.5) %FS 32% LVPWd 1.0 (0.6-1.2) Ao Diam 2.3 (2.0-3.7) 2 DIMENSIONAL ASSESSMENT: RIGHT ATRIUM: NORMAL LEFT ATRIUM: NORMAL RIGHT VENTRICLE: NORMAL LEFT VENTRICLE: NORMAL TRICUSPID VALVE: MILD TRICUSPID REGURGITATION MITRAL VALVE: NORMAL PULMONIC VALVE: NORMAL AORTIC VALVE: NORMAL PERICARDIAL EFFUSION: NONE AORTIC ROOT: NORMAL LEFT VENTRICULAR WALL MOTION: NORMAL DOPPLER/COLOR FLOW: MILD TRICUSPID REGURGITATION COMMENTS: 1. NORMAL LEFT VENTRICULAR EJECTION FRACTION 55-60% 2. NORMAL WALL MOTION 3. NORMAL DIASTOLIC FUNCTION 4. MILD TRICUSPID REGURGITATION TECHNOLOGIST: DARLIN HASTINGS
[2023-05-09 14:06] LABS: Magnesium 2.2 mg/dL (1.6-2.4); Potassium 4.1 mEq/L (3.5-5.1)
--- NOTE | 2023-05-09 14:52 | P.CNS ---
Date of Consult: 05/09/23 Reason for Consult: sepsis Allergies No Known Allergies Allergy (Verified 05/09/23 01:31) Home medications list reviewed: Yes Home Medications: Glipizide [Glipizide ER] 1 tab PO BID 05/09/23 Metformin HCl [Glucophage*] 850 mg PO BID 05/09/23 Telmisartan/Hydrochlorothiazid [Micardis Hct 80-12.5 mg Tablet] 1 tab PO DAILY 05/09/23 - Past Medical/Surgical History Diabetic: Yes -: HTN -: DM -: Cholecystectomy -: Left leg varicose vein removed -: tubal ligation - Family History Mother Medical History: Hypertension, Kidney disease Father Medical History: Diabetes - Social History Alcohol use: No CD- Drugs: No Caffeine use: Yes Place of Residence: Home Review of Systems 10-point ROS is otherwise unremarkable General: Weakness Gastrointestinal: Nausea Physical Examination Temp Pulse Resp BP Pulse Ox 97.3 F 93 H 24 H 101/60 99 05/09/23 12:00 05/09/23 12:00 05/09/23 12:00 05/09/23 12:00 05/09/23 12:00 General: Alert, In no apparent distress, Oriented x3 HEENT: Atraumatic, Normocephalic Neck: Supple, JVD not distended Respiratory: Clear to auscultation bilaterally, Normal air movement Cardiovascular: No edema, Normal pulses Gastrointestinal: Normal bowel sounds, Soft and benign Musculoskeletal: No clubbing, No swelling Integumentary: No rashes, No breakdown Neurological: Normal speech Laboratory Data (last 24 hrs) 05/08/23 05/08/23 05/08/23 18:58 18:58 18:58 WBC 18.60 H Hgb 13.8 Hct 41.3 Plt Count 262 PT 11.7 INR 1.06 Sodium 134 L Potassium 3.6 BUN 17 Creatinine 1.15 H Glucose 317 H Magnesium 1.0 L* Total Bilirubin 0.4 AST 72 H ALT 66 H Alkaline Phosphatase 99 Lipase 40 Imagings Data: - reviewed Conclusions/Impression: Problem List Sepsis secondary to urinary tract infection Diabetes Mellitus type II Hypertension Blood cultures 05/08: Pending Urinalysis with pyuria and bacteruria suggestive of UTI. Urine culture 05/08: Pending CXR 05/08: " No acute intrathoracic process suspected. Leukocytosis (WBC 24.7) Afebrile Lactic acid 4.9 on arrival Recommendations - Continue Zosyn for now. - Follow up with blood/urine culture results. will Adjust antibiotics as appropriate. - WBC and fever trends Case discussed with Corazon De La Rosa
[2023-05-10] MEDS: PIPER TAZO 3.375 GM in NA CHLORIDE 0.9% 100 ML IV SCH ×3 (01:57→18:24)
[2023-05-10] MEDS: NA CHLORIDE 0.9% 1,000 ML IV SCH ×5 (02:52→18:58)
[2023-05-10] MEDS ORDERED: VANCOMYCIN 1.25 GM in NA CHLORIDE 0.9% 250 ML IVPB SCH ×4 (03:00)
[2023-05-10 05:14] LABS: Absolute Lymphocytes (CBC) 1.8 K/uL (0.7-4.9); Hematocrit 32.1 % (36.0-45.0); Lymphocytes % 11.6 % (15.3-44.8); MCV 88.3 fL (80-100); MPV 8.9 fL (7.6-11.3); Platelets 187 thou/uL (152-406); RBC Red Blood Cell Count 3.64 M/uL (3.86-4.86)
[2023-05-10 05:22] LABS: Magnesium 1.7 mg/dL (1.6-2.4); Phosphorus 1.8 mg/dL (2.5-4.9); Potassium 3.5 mEq/L (3.5-5.1)
--- NOTE | 2023-05-10 08:12 | P.PN ---
Date of Service: 05/10/23 Chief complaint: fever, chills, nausea, generalized weakness Subjective: Improving Physical Examination Temp Pulse Resp BP Pulse Ox 98.8 F 89 16 125/68 95 05/10/23 04:00 05/10/23 06:00 05/10/23 06:00 05/10/23 06:00 05/10/23 06:00 General: Alert, In no apparent distress, Oriented x3 HEENT: Atraumatic, Normocephalic Neck: Supple, JVD not distended Respiratory: Clear to auscultation bilaterally, Normal air movement. On room air. Cardiovascular: No edema, Normal pulses Gastrointestinal: Normal bowel sounds, Soft and benign Musculoskeletal: No clubbing, No swelling Integumentary: No rashes, No breakdown Neurological: Normal speech Laboratory Data - Reviewed Microbiology Data - Reviewed Imagings Data: - Reviewed Assessment and Plan Problem List Sepsis secondary to urinary tract infection Gram negative bacteremia secondary to UTI Diabetes Mellitus type II Hypertension Sepsis/Bacteremia secondary to Urinary Tract Infection Blood cultures 05/08: Gram-negative rods in 4 of 4 bottles Urinalysis with pyuria and bacteruria suggestive of UTI. Urine culture 05/08: 4+ gram negative rods CXR 05/08: " No acute intrathoracic process suspected. Leukocytosis improving (WBC 24.7 -> 15.6) Afebrile Diabetes Mellitus Type II - HgbA1c = 10.3 Recommendations - Gram negative Bacteremia: Continue antibiotic therapy for 14 days (05/09-05/23) - Currently on Zosyn, continue for now. - Follow up with final blood and urine culture results. Will Adjust antibiotics as appropriate. - WBC and fever trends Case discussed with Corazon De La Rosa
[2023-05-10] MEDS: ENOXAPARIN 40 MG/0.4 ML SQ SCH (08:32)
[2023-05-10] MEDS: POTASS/SODIUM PHOSPHATE 1 PKT POWD.PACK PO SCH ×3 (08:33→10:33)
[2023-05-10] MEDS: INSULIN -REGULAR HUMAN 50 UNIT/0.5 ML ML SQ SCH ×4 (08:33→20:42)
[2023-05-11] MEDS: PIPER TAZO 3.375 GM in NA CHLORIDE 0.9% 100 ML IV SCH ×2 (00:23→07:59)
[2023-05-11 05:34] LABS: Absolute Lymphocytes (CBC) 2.2 K/uL (0.7-4.9); Hematocrit 32.1 % (36.0-45.0); Lymphocytes % 23.6 % (15.3-44.8); MCV 88.8 fL (80-100); MPV 9.6 fL (7.6-11.3); Platelets 187 thou/uL (152-406); RBC Red Blood Cell Count 3.61 M/uL (3.86-4.86)
[2023-05-11 05:45] LABS: Magnesium 1.5 mg/dL (1.6-2.4)
[2023-05-11] MEDS: NA CHLORIDE 0.9% 1,000 ML IV SCH (07:00)
[2023-05-11 07:02] LABS: Albumin 2.3 g/dL (3.4-5.0); Bilirubin Total 0.2 mg/dL (0.2-1.0); Potassium 3.8 mEq/L (3.5-5.1); Protein, Total 5.4 g/dL (6.4-8.2)
[2023-05-11] MEDS: INSULIN -REGULAR HUMAN 50 UNIT/0.5 ML ML SQ SCH (07:30)
[2023-05-11] MEDS ORDERED: Magnesium Sulfate 2gm IVPB 2 G/50 ML BAG IV ONE (07:35)
[2023-05-11] MEDS ORDERED: POTASSIUM 25 MEQ EFFERV TAB PO ONE (07:35)
[2023-05-11] MEDS: ENOXAPARIN 40 MG/0.4 ML SQ SCH (07:59)
[2023-05-11] MEDS ORDERED: GLIPIZIDE S.A. 5 MG TAB PO SCH (08:00)
[2023-05-11 09:09] VITALS: O2SAT 98
[2023-05-11 11:39] VITALS: TEMP 97.1
[2023-05-11 11:40] VITALS: BP 135/78
== END 2023-05-11 11:14 | disposition home or self-care (01) | DRG 871 ==
LOC: ER 18:10 → ERHOLD 22:34 → 3RD-ICU 05-09 00:05
PROVIDERS: ADMIT Hospitalist; ATTEND Hospitalist
PROC: 02HV33Z Insertion of Infusion Device into Superior Vena Cava, Percutaneous Approach (ICD-10-PCS; 2023-05-08)
PROC: 3E043XZ Introduction of Vasopressor into Central Vein, Percutaneous Approach (ICD-10-PCS; principal; 2023-05-09)
DX: A41.51 Sepsis due to Escherichia coli [E. coli] (principal); R65.21 Severe sepsis with septic shock; E87.1 Hypo-osmolality and hyponatremia; N30.00 Acute cystitis without hematuria; N17.9 Acute kidney failure, unspecified; I10 Essential (primary) hypertension; E86.0 Dehydration; E83.42 Hypomagnesemia; E11.65 Type 2 diabetes mellitus with hyperglycemia; D72.829 Elevated white blood cell count, unspecified; R74.01 Elevation of levels of liver transaminase levels; Z79.84 Long term (current) use of oral hypoglycemic drugs; Z98.51 Tubal ligation status; Z90.49 Acquired absence of other specified parts of digestive tract; Z79.899 Other long term (current) drug therapy; Z20.822 Contact with and (suspected) exposure to COVID-19
CPT/HCPCS: 36415; 70450; 71045; 80048; 80053; 80074; 80076; 81001; 82947; 83036; 83605; 83690; 83735; 83880; 84100; 84132; 84145; 84484; 85025; 85610; 87040; 87077; 87086; 87088; 87186; 87205; 87804; 87811; 93005; 93306; 96361; 96365; 96366; 96367; 96372; 99285; J0696; J1650; J1815; J2543; J3475; J7030; J7040; J7050